=== PATIENT | female | born 1985 | race Caucasian/White ===

== ENCOUNTER 2018-02-07 08:06 | Inpatient (IN) | payer OTHER ==
--- NOTE | 2018-02-07 09:12 | HP ---
General Information - General Information Maternal Age: 33 Grav: 3 Para: 1 SAB: 1 IEA: 0 Estimated Due Date: 02/10/18 Determined By: LMP Gestational Age in Weeks and Days: 39 Weeks and 4 Days Maternal Blood Type and Rh: A Negative - Results this Serology/RPR Result: Non-Reactive Rubella Result: Immune HBsAg Result: Negative HIV Result: Negative GBS Culture Result: Negative Past Medical History Delivery History: Hx Uncomplicated Vaginal Delivery - 2015 Pertinent Past Medical History: Non-Contributory Pertinent Past Surgical History: See Records - D&C, wisdom tooth removal Pertinent Family History: Non-Contributory - Antepartal Records Antepartal Records: Reviewed, Uncomplicated Review of Systems Constitutional: Uncomfortable CV Complaint: No Respiratory: Shortness of Breath: No Gastrointestinal: No Nausea/Vomiting, Normal Bowel Movement Genitourinary: No Dysuria, No Bleeding, No Leaking Fluid Musculoskeletal: Contractions Neurological: No Headache, No Visual Changes Movement: Normal Exam Allergies/Adverse Reactions: Allergies No Known Allergies Allergy (Verified 03/22/16 13:29) BP 122/83 T 98.5 HR 94 RR18 O2 100 - Measurements Height: 5 ft 9.5 in Weight: 162 lb Weight in lbs: 162 Body Mass Index (BMI): 23.6 Pre- Weight: 130 lb Weight Gained This : 32 lbs and 0 ozs - Exam Abdomen: No Upper Quadrant Pain Breast: Breast Exam Deferred CVA: No CVA Tenderness Extremities: No Edema Heart: Normal Rhythm/Heart Sounds HEENT: No Significant Findings Lungs: Clear Bilaterally Rectal: Rectal Exam Deferred Reflexes: DTR 2+, - - no clonus Thyroid: - - WNL @ entry to AP care - Cervical Exam 3cm/70%/vertex -2 - Abdominal Exam Abdomen Exam: Non-Tender Abdomen Exam Comment: EFW 6.5-7lb - Membranes Membrane Status: Intact - Ultrasound/Biophysical Profile Ultrasound Status: Not Done EFM Findings - External Monitor Findings Baseline Heart Rate: 140 External Monitor Findings: Accelerations Present, No Pattern of Variable or Late Decelerations, Variability Moderate Contractions: Irregular, Mild, < 45 Seconds Contraction Frequency: Q 10 min Assessment/Plan - Reason for Visit Reason for Visit: IUP @ 39+4 weeks gestation here for elective induction of labor due to weeks of prodromal labor. IBOW. No evidence metabolic acidemia. - Plan Plan: Induction - Date/Time of Admission Date of Admission: 02/07/18 Time of Admission: 08:54
[2018-02-07] MEDS ORDERED: Oxytocin in LR* 20 UNITS/1,000 ML BAG IVPB ONE (09:24)
[2018-02-07 09:27] LABS: ABS Basophils 0 10^3/ul (0-0.2); ABS Eosinophils 0.1 10^3/ul (0-0.6); ABS Lymphocytes 1.7 10^3/ul (1.0-4.8); ABS Nucleated RBC 0 10^3/ul; Eosinophil % 0.9 % (0-6); Hematocrit 38 % (35-47); Lymphocyte % 17.5 % (25-47); Mean Corpuscular HGB Conc 35 g/dl (31-36); Mean Corpuscular Hemoglobin 31 pg (27-31); Mean Corpuscular Volume 89 fL (80-97); Mean Platelet Volume 9.4 um3 (7.4-10.4); Nucleated Red Blood Cells % 0.1; Platelet Count 165 10^3/ul (150-450); Red Cell Distribution Width 13 % (10.5-15); White Blood Count 9.9 10^3/ul (3.5-10.8)
[2018-02-07] MEDS ORDERED: Oxytocin in LR* 20 UNITS/1,000 ML BAG IVPB SCH ×2 (10:00→18:00)
[2018-02-07] MEDS ORDERED: Promethazine INJ(RESTRICTED)* 25 MG/ML 1 ML VIAL IV PRN (14:23)
[2018-02-07] MEDS ORDERED: Nalbuphine* 20 MG/ML 1 ML VIAL IV PRN (14:23)
[2018-02-07] MEDS ORDERED: Nalbuphine* 20 MG/ML 1 ML VIAL ONE (14:26)
[2018-02-07] MEDS ORDERED: Promethazine INJ(RESTRICTED)* 25 MG/ML 1 ML VIAL ONE (14:26)
[2018-02-07] MEDS ORDERED: fentaNYL* 50 MCG/ML 2 ML VIAL (100 MCG VIAL) ONE (16:45)
[2018-02-07] MEDS ORDERED: Witch Hazel PAD* JAR TOPICAL PRN (17:29)
[2018-02-07] MEDS ORDERED: Glycerin ADULT SUPP PR PRN (17:29)
[2018-02-07] MEDS ORDERED: RHO D Immune Globulin (HUMAN)* 300 MCG = 1,500 I.U. INJ IM ONE (17:29)
[2018-02-07] MEDS ORDERED: Acetaminophen TAB* 325 MG PO PRN (17:29)
[2018-02-07] MEDS ORDERED: Dibucaine 1% 28.35 GM TUBE PR PRN (17:29)
[2018-02-07] MEDS ORDERED: Ibuprofen TAB* 600 MG PO PRN (17:29)
[2018-02-07] MEDS ORDERED: Misoprostol TAB* 200 MCG PR ONE (17:31)
[2018-02-07 20:38] LABS: Hematocrit 28 % (35-47); Hemoglobin 9.5 g/dl (12.0-16.0)
[2018-02-07] MEDS ORDERED: ceFAZolin 1 GM VIAL(*) 2 GM in NS 0.9% 100 ML* 100 ML IVPB SCH (21:00)
[2018-02-07] MEDS: ceFAZolin 2 GM PREMIX (*) 2 GM/50 ML BAG IVPB SCH (21:08)
[2018-02-08] MEDS: ceFAZolin 2 GM PREMIX (*) 2 GM/50 ML BAG IVPB SCH (06:00)
[2018-02-08 06:26] LABS: ABS Basophils 0 10^3/ul (0-0.2); ABS Eosinophils 0.1 10^3/ul (0-0.6); ABS Monocytes 1.3 10^3/ul (0-0.8); ABS Neutrophils 10.1 10^3/ul (1.5-7.7); ABS Nucleated RBC 0 10^3/ul; Eosinophil % 0.6 % (0-6); Hematocrit 23 % (35-47); Lymphocyte % 20.6 % (25-47); Mean Corpuscular HGB Conc 34 g/dl (31-36); Mean Corpuscular Hemoglobin 31 pg (27-31); Mean Corpuscular Volume 90 fL (80-97); Mean Platelet Volume 8.8 um3 (7.4-10.4); Nucleated Red Blood Cells % 0; Platelet Count 133 10^3/ul (150-450); Red Cell Distribution Width 13 % (10.5-15); White Blood Count 14.5 10^3/ul (3.5-10.8)
[2018-02-08] MEDS: Docusate CAP* 100 MG PO SCH ×3 (08:30→20:06)
[2018-02-08] MEDS: Ferrous Gluconate TAB* 324 MG TAB PO SCH ×2 (08:30→20:06)
[2018-02-09 07:33] VITALS: BP 132/66
[2018-02-09] MEDS: Docusate CAP* 100 MG PO SCH (08:59)
[2018-02-09] MEDS: Ferrous Gluconate TAB* 324 MG TAB PO SCH (08:59)
== END 2018-02-09 11:23 | disposition home or self-care (01) | DRG 560 ==
LOC: MCHOBOUT 08:06 → MCHOB 08:54
PROVIDERS: ADMIT Midwife; ATTEND Midwife
PROC: 10E0XZZ Delivery of Products of Conception, External Approach (ICD-10-PCS; principal; 2018-02-07)
PROC: 3E033VJ Introduction of Other Hormone into Peripheral Vein, Percutaneous Approach (ICD-10-PCS; 2018-02-07)
PROC: 0HQ9XZZ Repair Perineum Skin, External Approach (ICD-10-PCS; 2018-02-07)
DX: O69.3XX0 Labor and delivery complicated by short cord, not applicable or unspecified (principal); O72.2 Delayed and secondary postpartum hemorrhage; O99.344 Other mental disorders complicating childbirth; F41.8 Other specified anxiety disorders; O70.0 First degree perineal laceration during delivery; O90.81 Anemia of the puerperium; D64.9 Anemia, unspecified; Z3A.39 39 weeks gestation of pregnancy; Z37.0 Single live birth
CPT/HCPCS: 36415; 85014; 85018; 85025; 86850; 86900; 86901; A9270-GY; J0690; J2300; J2550; J3010

== ENCOUNTER → 2018-02-15 | Day surgery (SDC) | payer OTHER ==
[~2018-02-15] MED LIST: Dexamethasone IV* 4 MG/ML 1 ML (4 MG) ONE; Lidocaine 1% INJ* 10 MG/ML 30 ML SDV ONE; Lidocaine 2% PF * 5 ML VIAL ONE; Midazolam* 1 MG/ML 5 ML VIAL (5 MG) ONE; Misoprostol TAB* 200 MCG ONE; Naloxone* 0.4 MG/ML 1 ML VIAL IV PRN; Ondansetron INJ* 2 MG/ML VIAL IV PRN; Ondansetron INJ* 2 MG/ML VIAL ONE; Propofol* 10 MG/ML 20 ML BTL IV PUSH ONE; ceFAZolin 2 GM PREMIX (*) 2 GM/50 ML BAG IVPB ONE; fentaNYL* 50 MCG/ML 2 ML VIAL (100 MCG VIAL) IV PRN; fentaNYL* 50 MCG/ML 2 ML VIAL (100 MCG VIAL) ONE; oxyCODONE/Acetamin 5/325 MG* TAB PO PRN
[2018-02-15 18:45] LABS: ABS Basophils 0.1 10^3/ul (0-0.2); ABS Eosinophils 0.1 10^3/ul (0-0.6); ABS Lymphocytes 2.2 10^3/ul (1.0-4.8); ABS Monocytes 0.6 10^3/ul (0-0.8); ABS Neutrophils 6.4 10^3/ul (1.5-7.7); ABS Nucleated RBC 0 10^3/ul; Eosinophil % 1.4 % (0-6); Hematocrit 27 % (35-47); Hemoglobin 9.1 g/dl (12.0-16.0); Lymphocyte % 23.1 % (25-47); Mean Corpuscular HGB Conc 34 g/dl (31-36); Mean Corpuscular Hemoglobin 31 pg (27-31); Mean Corpuscular Volume 90 fL (80-97); Mean Platelet Volume 7.1 um3 (7.4-10.4); Nucleated Red Blood Cells % 0; Platelet Count 271 10^3/ul (150-450); Red Blood Count 2.93 10^6/ul (4.0-5.4); Red Cell Distribution Width 13 % (10.5-15); White Blood Count 9.4 10^3/ul (3.5-10.8)
[2018-02-15 22:22] VITALS: BP 97/74
--- NOTE | 2018-02-16 05:26 | OP ---
DATE OF OPERATION: 02/15/18 - [facility] DATE OF : 83 SURGEON: Rachael Givens MD. BOND MANAGER: Camila Erazo CNM. PRE-OP DIAGNOSIS: Retained products of conception. POST-OP DIAGNOSIS: Retained products of conception. OPERATIVE PROCEDURE: Suction, dilation and curettage. ESTIMATED BLOOD LOSS: 200 mL. FLUIDS: Crystalloid. DRAINS: 200 mL of urine drained from the bladder prior to the procedure. COMPLICATIONS: None. FINDINGS: Large amount of retained placenta in the uterus with a small amount remaining at the end of the procedure. DESCRIPTION OF PROCEDURE: After informed consent was signed, the patient was taken to the operating room where she was given general anesthesia that was found to be adequate. She was prepped and draped in the dorsal lithotomy position with a candy cane stirrups. A time out was performed. Two speculums were placed in the vagina to expose the cervix and the anterior lip of the cervix was grasped with a ring forceps. The cervix was already found to be dilated. Under ultrasound guidance, suction and curettage was used in an attempt to remove pieces of the placenta. Some of the placenta did remove with a suction curettage but a large amount remained in the uterus; therefore, sharp curettage was used to gradually remove pieces of retained placenta from the uterus. There was an extensive amount of placenta removed, all under ultrasound guidance. The placenta was fundal and anterior. There was one small area at the left fundus that was not removed with fairly extensive curettage. Therefore, the decision was made to end the procedure. The patient was given 800 micrograms of Cytotec. The ring forceps was removed from the cervix. There is a moderate amount of bleeding initially that quickly resolved with bimanual massage to scant bleeding. The patient was awakened from anesthesia, moved to the stretcher, and taken to the recovery room in stable condition with very minimal bleeding noted on repeat exam in the recovery room. [id number]/[facility] #: [id number] GERRY
== END | disposition home or self-care (01) ==
LOC: OR 15:41
PROVIDERS: ATTEND Obstetrics & Gynecology
DX: O72.2 Delayed and secondary postpartum hemorrhage (principal); F41.8 Other specified anxiety disorders; G43.909 Migraine, unspecified, not intractable, without status migrainosus; Z87.891 Personal history of nicotine dependence; D64.9 Anemia, unspecified
CPT/HCPCS: 36415; 85025; 86850; 86900; 86901; 88305; A9270-GY; J0690; J1100; J2250; J2405; J2704; J3010

== ENCOUNTER 2018-09-23 09:37 | Emergency (ER) | payer OTHER ==
--- NOTE | 2018-09-23 09:54 | ED ---
HPI Chest Pain - HPI Summary HPI Summary: Patient is a 33-year-old female who presents emergency department for an episode of palpitations, shortness of breath and lightheadedness/dizziness. Pt. states she stood up downstairs and was carrying her up the steps when she felt a pounding in her chest, felt SOB, and like she was going to pass out. Pt. states she layed down with her child on the floor and symptoms improved. Pt. states since event she is feeling better in the ER. She denies recent illness, cough, fever, abd. pain, V/D, urinary sxs. Denies past medical hx. Does not smoke. No significant family hx for cardiac disease. Pt. notes her mother has a hx of thyroid mass. Symptoms are moderate in severity. No current modifying factors. - History of Current Complaint Chief Complaint: EDChestPainROMI Time Seen by Provider: 09/23/18 09:45 Hx Obtained From: Patient Pain Intensity: 5 - Allergy/Home Medications Allergies/Adverse Reactions: Allergies Allergy/AdvReac Type Severity Reaction Status Date / Time No Known Allergies Allergy Verified 09/23/18 09:42 PMH/Surg Hx/FS Hx/Imm Hx Previously Healthy: Yes Psychiatric History: Reports: Hx Anxiety, Hx Depression Infectious Disease History: No Infectious Disease History: Denies: Traveled Outside the [place] in Last 30 Days - Family History Known Family History: Positive: Other - thyroid tumor Negative: Cardiac Disease - Social History Occupation: Works From/At Home Lives: With Family Alcohol Use: None Alcohol Amount: not in , stopped May 2015 Substance Use Type: Reports: Marijuana Substance Use Comment - Amount & Last Used: Stopped April 2015 Smoking Status (MU): Former Smoker Review of Systems Constitutional: Negative Negative: Fever, Chills Eyes: Negative ENT: Negative Positive: Palpitations Positive: Shortness Of Breath Gastrointestinal: Negative Genitourinary: Negative Musculoskeletal: Negative Skin: Negative Neurological: Negative All Other Systems Reviewed And Are Negative: Yes Physical Exam Triage Information Reviewed: Yes Vital Signs On Initial Exam: Initial Vitals Temp Pulse Resp BP Pulse Ox 98.5 F 84 16 127/88 100 09/23/18 09:39 09/23/18 09:39 09/23/18 09:39 09/23/18 09:39 09/23/18 09:39 Vital Signs Reviewed: Yes Appearance: Positive: Well-Appearing - Pt. sitting up in bed in NAD. present. Skin: Positive: Warm, Dry Head/Face: Positive: Normal Head/Face Inspection Eyes: Positive: Normal, EOMI, MICHAEL, Conjunctiva Clear Diagnostics - Vital Signs Vital Signs Temp Pulse Resp BP Pulse Ox 09/23/18 09:39 98.5 F 84 16 127/88 100 - Laboratory Result Diagrams: 09/23/18 10:06 09/23/18 10:06 Lab Statement: Any lab studies that have been ordered have been reviewed, and results considered in the medical decision making process. Chest Pain Course/Dx - Course Course Of Treatment: Pt. presenting for what she describes as a near vasovagal syncopal episode after standing up and walking up steps. She is feeling back to baseline since incident. She is afebrile with stable VS. Exam unremarkable. Will check basic labs, ecg, and chest xray. Labs are unremarkable. Chest xray negative for acute findings per radoiology. Orthostatic VS unremarkable. Results discussed with pt. Will dc home to [facility] with PCP for possible further testing and holtor monitor. Pt. understands and agrees with plan. - Chest Pain Differential Diagnosis/HQI/PQRI: GI Disease, Lower Respiratory Infection, Pulmonary Embolism - Diagnoses Provider Diagnoses: Vasovagal near syncope, Palpitations Discharge - Sign-Out/Discharge Documenting (check all that apply): Patient Departure - Discharge Plan Condition: Good Disposition: HOME Patient Education Materials: Heart Palpitations (ED), Near Syncope (ED) Referrals: Ilana Porter MD [Primary Care Provider] - Additional Instructions: Call your PCP today to schedule a follow up appointment--you may need further testing if symptoms persist Increase fluids and rest Change positions slowly Return to ER if symptoms change or worsen - Billing Disposition and Condition Condition: GOOD Disposition: Home
[2018-09-23 10:41] LABS: ABS Basophils 0.1 10^3/ul (0-0.2); ABS Eosinophils 0.1 10^3/ul (0-0.6); ABS Lymphocytes 1.5 10^3/ul (1.0-4.8); ABS Monocytes 0.5 10^3/ul (0-0.8); ABS Neutrophils 2.6 10^3/ul (1.5-7.7); ABS Nucleated RBC 0 10^3/ul; Eosinophil % 1.1 %; Hematocrit 38 % (35-47); Hemoglobin 13.2 g/dl (12.0-16.0); Lymphocyte % 32.1 %; Mean Corpuscular HGB Conc 35 g/dl (31-36); Mean Corpuscular Hemoglobin 30 pg (27-31); Mean Corpuscular Volume 85 fL (80-97); Mean Platelet Volume 8.6 fL (7.4-10.4); Nucleated Red Blood Cells % 0; Platelet Count 189 10^3/ul (150-450); Red Blood Count 4.46 10^6/ul (4.00-5.40); Red Cell Distribution Width 13 % (10.5-15); White Blood Count 4.8 10^3/ul (3.5-10.8)
[2018-09-23 11:12] LABS: EGFR Non-African American 97.4 (>60)
[2018-09-23 12:20] VITALS: BP 107/68
== END 2018-09-23 12:21 | disposition home or self-care (01) ==
LOC: ED 09:37
DX: R55 Syncope and collapse (principal); R00.2 Palpitations; Z87.891 Personal history of nicotine dependence
CPT/HCPCS: 36415; 71045; 80053; 84443; 84484; 84702; 85025; 85379; 93005; 99283